=== PATIENT | female | born 1995 | race Caucasian/White ===

== ENCOUNTER 2016-10-19 11:51 | Emergency (ER) | payer SELFPAY ==
[2016-10-19 12:03] VITALS: PULSE 74; RESP 20; O2SAT 100
[2016-10-19 12:28] LABS: HCG,QUALITATIVE URINE NEGATIVE (NEGATIVE)
[2016-10-19 12:34] LABS: SQUAMOUS EPITHIAL 6 /hpf (0-5); URINE BILIRUBIN NEGATIVE (NEGATIVE); URINE BLOOD NEGATIVE (NEGATIVE); URINE CLARITY Clear (Clear); URINE COLOR Yellow (YELLOW); URINE GLUCOSE (UA) NORMAL (Normal); URINE NITRATE NEGATIVE (NEGATIVE); URINE PROTEIN NEGATIVE (NEGATIVE); URINE UROBILINOGEN NORMAL mg/dL (0.2-1.0)
[2016-10-19 12:38] LABS: URINE LEUKOCYTE ESTERASE 1+ Leu/uL (Negative)
[2016-10-19] MEDS ORDERED: cefTRIAXone (Rocephin) 250 mg Inj IM STA (13:26)
--- NOTE | 2016-10-19 13:38 | C.PDOC ---
History Of Present Illness Patient is a 21 y/o female that presents to the ED for evaluation of vaginal burning and itching associated with yellow vaginal discharge for the last 4 days. Otherwise, denies any abdominal pain, nausea, vomiting, back pain, hematuria, urinary frequency, fever, chills, or any other associated symptoms at this time. Time Seen by Provider: 10/19/16 12:47 Chief Complaint (Nursing): Female Genitourinary History Per: Patient History/Exam Limitations: no limitations Onset/Duration Of Symptoms: Days (4) Current Symptoms Are (Timing): Still Present Severity: None Pain Scale Rating Of: 0 Quality Of Discomfort: Burning Associated Symptoms: denies: Fever, Chills, Nausea, Vomiting, Diarrhea, Loss Of Appetite, Back Pain, Chest Pain, Constipation, Urinary Symptoms Alleviating Factors: None Recent travel outside of the [place]: No Additional History Per: Patient Abnormal Vaginal Bleeding: No Past Medical History Reviewed: Historical Data, Nursing Documentation, Vital Signs Vital Signs: Last Vital Signs Temp 97.9 F 10/19/16 13:57 Pulse 74 10/19/16 13:57 Resp 20 10/19/16 13:57 BP 106/68 10/19/16 13:57 Pulse Ox 100 10/19/16 14:28 Family History: States: Unknown Family Hx - Social History Hx Tobacco Use: No Hx Alcohol Use: No Hx Substance Use: No - Immunization History Hx Tetanus Toxoid Vaccination: No Hx Influenza Vaccination: No Hx Pneumococcal Vaccination: No Review Of Systems Except As Marked, All Systems Reviewed And Found Negative. Constitutional: Negative for: Fever, Chills Gastrointestinal: Negative for: Nausea, Vomiting, Abdominal Pain Genitourinary: Positive for: Vaginal Discharge (yellow), Other (vaginal itching and burning sensation). Negative for: Frequency, Incontinence, Hematuria, Vaginal Bleeding, Pelvic Pain, Rash Musculoskeletal: Negative for: Back Pain Physical Exam - Physical Exam Appears: Non-toxic, No Acute Distress Skin: Normal Color, Warm, Dry Head: Atraumatic, Normacephalic Neck: Normal ROM, Supple Chest: Symmetrical Cardiovascular: Rhythm Regular Gastrointestinal/Abdominal: Normal Exam, Soft, No Tenderness, No Guarding, No Rebound Pelvic: Normal External Exam, Normal Speculum Exam, No Vaginal Bleeding, Vaginal Discharge (yellow), No Cervical Motion Tenderness, No Adnexal Tenderness Neurological/Psych: Oriented x3, Normal Speech, Normal Cognition ED Course And Treatment O2 Sat by Pulse Oximetry: 100 (on RA) Pulse Ox Interpretation: Normal Progress Note: Urinalysis, and chlamydia/GC test ordered and reviewed. Patient was given Rocephin, and Azithromycin in the ER. Patient is being discharged home with prescription of Flagyl, and is instructed to follow up with PMD in 1- 2 days. Disposition - Disposition Referrals: [facility] at [facility] [Outside] Disposition: HOME/ ROUTINE Disposition Time: 13:37 Condition: STABLE Additional Instructions: Follow up with PMD/clinic within 1-2 days. Return to Ed if feel worse. 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 - Scribe Statement The provider has reviewed the documentation as recorded by the Scribe Shira Savage All medical record entries made by the Scribe were at my direction and personally dictated by me. I have reviewed the chart and agree that the record accurately reflects my personal performance of the history, physical exam, medical decision making, and the department course for this patient. I have also personally directed, reviewed, and agree with the discharge instructions and disposition.
[2016-10-19 13:58] VITALS: BP 106/68; TEMP 97.9
== END 2016-10-19 13:59 | disposition home or self-care (01) ==
LOC: C.ER 11:51
DX: N76.0 Acute vaginitis (principal)
CPT/HCPCS: 81001; 84703; 87491; 87591; 96372; 99284; J0696

== ENCOUNTER 2017-02-04 12:14 | Emergency (ER) | payer OTHER ==
[2017-02-04 12:15] VITALS: BMI 20.8
[2017-02-04 12:37] VITALS: RESP 18; O2SAT 99
[2017-02-04 13:20] LABS: RBC URINE < 1 /hpf (0-3); URINE BILIRUBIN NEGATIVE (NEGATIVE); URINE BLOOD NEGATIVE (NEGATIVE); URINE COLOR Yellow (YELLOW); URINE GLUCOSE (UA) NORMAL (Normal); URINE KETONE NEGATIVE (NEGATIVE); URINE LEUKOCYTE ESTERASE NEG Leu/uL (Negative); URINE PROTEIN NEGATIVE (NEGATIVE); URINE UROBILINOGEN NORMAL mg/dL (0.2-1.0); WBC URINE 1 /hpf (0-5)
--- NOTE | 2017-02-04 14:02 | C.PDOC ---
History Of Present Illness 21 year old female presents to the ED for evaluation of foul-smelling, green vaginal discharge which began 2 days ago. Patient denies fever, chills, abdominal pain, back pain, and dysuria. Time Seen by Provider: 02/04/17 12:32 Chief Complaint (Nursing): Female Genitourinary History Per: Patient History/Exam Limitations: no limitations Onset/Duration Of Symptoms: Days (2) Current Symptoms Are (Timing): Still Present Quality Of Discomfort: denies: "Pain" Associated Symptoms: denies: Fever, Chills, Back Pain, Urinary Symptoms Additional History Per: Patient Abnormal Vaginal Bleeding: No Past Medical History Reviewed: Historical Data, Nursing Documentation, Vital Signs Vital Signs: Last Vital Signs Temp 98.0 F 02/04/17 14:07 Pulse 77 02/04/17 14:07 Resp 18 02/04/17 14:07 BP 100/62 02/04/17 14:07 Pulse Ox 99 02/04/17 14:35 - Medical History PMH: No Chronic Diseases Surgical History: No Surg Hx Family History: States: Unknown Family Hx - Social History Hx Tobacco Use: No Hx Alcohol Use: No Hx Substance Use: No - Immunization History Hx Tetanus Toxoid Vaccination: No Hx Influenza Vaccination: No Hx Pneumococcal Vaccination: No Review Of Systems Constitutional: Negative for: Fever, Chills Gastrointestinal: Negative for: Abdominal Pain Genitourinary: Positive for: Vaginal Discharge (green, with foul odor ) Physical Exam - Physical Exam Appears: Non-toxic, No Acute Distress Skin: Normal Color, Warm, Dry Head: Atraumatic, Normacephalic Eye(s): bilateral: Normal Inspection Oral Mucosa: Moist Neck: Supple Chest: Symmetrical, No Deformity, No Tenderness Cardiovascular: Rhythm Regular, No Murmur Respiratory: Normal Breath Sounds, No Rales, No Rhonchi, No Wheezing Gastrointestinal/Abdominal: Soft, No Tenderness, No Guarding, No Rebound Pelvic: Vaginal Discharge (scant, no discharge associated with foul odor ), No Cervical Motion Tenderness, No Adnexal Tenderness, Other (Commercial Marketing Specialist: Lori Stuart RN ) Extremity: Normal ROM, Capillary Refill (less than 2 seconds) Neurological/Psych: Oriented x3, Normal Speech, Normal Cognition Gait: Steady ED Course And Treatment O2 Sat by Pulse Oximetry: 99 (on RA) Pulse Ox Interpretation: Normal Medical Decision Making Medical Decision Making: Progress: UA ordered and reviewed. Disposition - Disposition Referrals: Denise Kohler MD [Staff Provider] - Disposition: HOME/ ROUTINE Disposition Time: 14:00 Condition: GOOD Additional Instructions: Follow up with the medical doctor within 1-2 days. Return if worsened. Prescriptions: Fluconazole [Diflucan] 150 mg PO ONCE #2 tab Metronidazole [Metrogel] 60 gm TP DAILY #2 gel..gram. 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 - Scribe Statement The provider has reviewed the documentation as recorded by the Scribe (Sharon Savage) All medical record entries made by the Scribe were at my direction and personally dictated by me. I have reviewed the chart and agree that the record accurately reflects my personal performance of the history, physical exam, medical decision making, and the department course for this patient. I have also personally directed, reviewed, and agree with the discharge instructions and disposition.
[2017-02-04 14:08] VITALS: BP 100/62; PULSE 77; TEMP 98
== END 2017-02-04 14:08 | disposition home or self-care (01) ==
LOC: C.ER 12:14
DX: N76.0 Acute vaginitis (principal)

== ENCOUNTER 2017-06-13 17:33 | Emergency (ER) | payer OTHER ==
[2017-06-13 17:33] VITALS: BMI 20.8
[2017-06-13 18:36] VITALS: BP 133/70; PULSE 69; RESP 16; TEMP 98.2; O2SAT 99
[2017-06-13 19:29] LABS: HCG,QUALITATIVE URINE NEGATIVE (NEGATIVE)
[2017-06-13 19:30] LABS: SQUAMOUS EPITHIAL < 1 /hpf (0-5); URINE AMORPHOUS SEDIMENT RARE /ul (<OCC); URINE BACTERIA RARE (<OCC); URINE BILIRUBIN NEGATIVE (NEGATIVE); URINE BLOOD NEGATIVE (NEGATIVE); URINE CLARITY Clear (Clear); URINE COLOR Straw (YELLOW); URINE GLUCOSE (UA) NORMAL (Normal); URINE LEUKOCYTE ESTERASE NEG Leu/uL (Negative); URINE NITRATE NEGATIVE (NEGATIVE); URINE PROTEIN NEGATIVE (NEGATIVE); URINE UROBILINOGEN NORMAL mg/dL (0.2-1.0)
--- NOTE | 2017-06-13 19:44 | C.PDOC ---
History Of Present Illness 22 y/o female presents to the ER complaining of vaginal irritation and itchiness with a rash which gradually developed over the past 2 days. Patient states that she has thick white vaginal discharge. Patient denies fever, chills , abdominal pain, nausea, vomiting, and diarrhea. Patient denies using abx and having sexual contact. Time Seen by Provider: 06/13/17 19:11 Chief Complaint (Nursing): Female Genitourinary History Per: Patient History/Exam Limitations: no limitations Onset/Duration Of Symptoms: Days Current Symptoms Are (Timing): Still Present Severity: Moderate Past Medical History Reviewed: Historical Data, Nursing Documentation, Vital Signs Vital Signs: Last Vital Signs Temp 98.2 F 06/13/17 18:34 Pulse 69 06/13/17 18:34 Resp 16 06/13/17 18:34 BP 133/70 06/13/17 18:34 Pulse Ox 99 06/13/17 19:56 - Medical History PMH: No Chronic Diseases Surgical History: No Surg Hx Family History: States: No Known Family Hx - Social History Hx Tobacco Use: No Hx Alcohol Use: No Hx Substance Use: No - Immunization History Hx Tetanus Toxoid Vaccination: No Hx Influenza Vaccination: No Hx Pneumococcal Vaccination: No Review Of Systems Except As Marked, All Systems Reviewed And Found Negative. Constitutional: Negative for: Fever, Chills Gastrointestinal: Negative for: Nausea, Vomiting, Abdominal Pain, Diarrhea Genitourinary: Positive for: Vaginal Discharge, Rash, Other (vaginal itchiness) Physical Exam - Physical Exam Appears: Well, Non-toxic, No Acute Distress Skin: Normal Color, Warm, No Rash Head: Normacephalic Eye(s): bilateral: PERRL Nose: No Flaring Oral Mucosa: Moist, No Drooling Throat: No Erythema Neck: Trachea Midline, Supple Gastrointestinal/Abdominal: Soft, No Tenderness, No Distention, No Guarding, No Rebound Back: No CVA Tenderness Pelvic: Vaginal Discharge (scant, white, thick discharge), No Cervical Motion Tenderness, Other (mild vaginal erythema) Extremity: Normal ROM Neurological/Psych: Oriented x3, Normal Speech ED Course And Treatment O2 Sat by Pulse Oximetry: 99 (RA) Pulse Ox Interpretation: Normal Progress Note: On re-eval, pt is fabeirle, hemodynamicaly stable. Non-toxic. Tolerate Po well in ED. ENT: No acute findings. Abd: benign. : exam c/w candidal vulvovaginitis. BAck: (-) CVA tenderness. UA results review- normal. Pt advised on course of ds. ref. to f/u with [facility] In 2-3 days for re-eavl. Return to ED if any worsening or new changes. Disposition Counseled Patient/Family Regarding: Studies Performed, Diagnosis, Need For Followup, Rx Given - Disposition Referrals: Vania Savage MD [Staff Provider] - Disposition: HOME/ ROUTINE Disposition Time: 19:41 Condition: STABLE Additional Instructions: Take medication as prescribed Follow up with [facility] in 2-3 days for re-evaluation. Return to ED if any worsening or new changes. 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 - Scribe Statement The provider has reviewed the documentation as recorded by the Kannanibe Prince Galvan Provider Attestation All medical record entries made by the Kannanibe were at my direction and personally dictated by me. I have reviewed the chart and agree that the record accurately reflects my personal performance of the history, physical exam, medical decision making, and the department course for this patient. I have also personally directed, reviewed, and agree with the discharge instructions and disposition.
== END 2017-06-13 19:55 | disposition home or self-care (01) ==
LOC: C.ER 17:33
DX: B37.3 Candidiasis of vulva and vagina (principal)

== ENCOUNTER 2018-02-16 22:07 | Emergency (ER) | payer SELFPAY ==
[2018-02-16 22:07] VITALS: BMI 20.8
[2018-02-16] MEDS ORDERED: Sodium Chloride 0.9% 1,000 ML IV ONE ×2 (22:34→23:27)
[2018-02-16 22:36] LABS: HCG,QUALITATIVE URINE NEGATIVE (NEGATIVE)
--- NOTE | 2018-02-16 22:37 | C.PDOC ---
History Of Present Illness 22 year old female presents to the ED c/o nausea, abdominal cramping, diarrhea, and suprapubic discomfort since yesterday. Patient also states having intermittent headache and body aches for the past 3 days. Patient reports she ate steak prior to symptoms starting. Patient denies cough, runny nose, sore throat, CP, SOB, rash,dysuria, hematuria, recent travel, sick contacts. Time Seen by Provider: 02/16/18 22:27 Chief Complaint (Nursing): Abdominal Pain History Per: Patient History/Exam Limitations: no limitations Onset/Duration Of Symptoms: Days Current Symptoms Are (Timing): Still Present Location Of Pain/Discomfort: Suprapubic Radiation Of Pain To:: None Quality Of Discomfort: Cramping Associated Symptoms: Nausea, Diarrhea. denies: Vomiting, Urinary Symptoms Alleviating Factors: None Recent travel outside of the [place]: No Additional History Per: Patient Abnormal Vaginal Bleeding: No Past Medical History Reviewed: Historical Data, Nursing Documentation, Vital Signs Vital Signs: Last Vital Signs Temp 101.0 F H 02/16/18 22:22 Pulse 119 H 02/16/18 22:22 Resp 20 02/16/18 22:22 BP 121/81 02/16/18 22:22 Pulse Ox 98 02/16/18 22:22 - Medical History PMH: No Chronic Diseases Surgical History: No Surg Hx Family History: States: Unknown Family Hx - Social History Hx Tobacco Use: No Hx Alcohol Use: Yes Hx Substance Use: No - Immunization History Hx Tetanus Toxoid Vaccination: Yes Hx Influenza Vaccination: Yes Hx Pneumococcal Vaccination: No Review Of Systems Constitutional: Positive for: Malaise. Negative for: Fever, Chills ENT: Negative for: Nose Discharge, Nose Congestion, Throat Pain Cardiovascular: Negative for: Chest Pain Respiratory: Negative for: Cough, Shortness of Breath Gastrointestinal: Positive for: Nausea, Abdominal Pain, Diarrhea. Negative for: Vomiting Genitourinary: Negative for: Dysuria, Hematuria, Vaginal Discharge, Vaginal Bleeding Skin: Negative for: Rash Neurological: Positive for: Headache Physical Exam - Physical Exam Appears: Non-toxic, No Acute Distress, Other (shivering, warm to touch) Skin: Normal Color, Warm, Dry Head: Atraumatic, Normacephalic Eye(s): bilateral: Normal Inspection Oral Mucosa: Moist Neck: Normal ROM, Supple Chest: Symmetrical Cardiovascular: Rhythm Regular (tachycardic) Respiratory: Normal Breath Sounds, No Rales, No Rhonchi, No Wheezing Gastrointestinal/Abdominal: Soft, Tenderness (mild suprapubic), No Guarding, No Rebound, Other (Negative McBurney's ) Back: No CVA Tenderness Extremity: Normal ROM, No Tenderness, No Swelling Neurological/Psych: Oriented x3, Normal Speech, Normal Cognition Gait: Steady ED Course And Treatment - Laboratory Results Result Diagrams: 02/17/18 00:12 02/16/18 22:43 O2 Sat by Pulse Oximetry: 98 (ON RA) Pulse Ox Interpretation: Normal Progress Note: Plan: - Labs. - IV fluids. - Toradol 30 mg IVP. - Urine culture. - Influenza A B. - UA Disposition Counseled Patient/Family Regarding: Studies Performed, Diagnosis, Need For Followup, Rx Given - Disposition Referrals: [facility] at [facility] [Outside] Disposition: HOME/ ROUTINE Disposition Time: 01:00 Condition: STABLE Additional Instructions: FOLLOW UP WITH YOUR DOCTOR/CLINIC IN 1-2 DAYS DRINK PLENTY OF CLEAR FLUIDS USE MEDICATIONS NEEDED RETURN TO EMERGENCY ROOM IF YOUR SYMPTOMS BECOME WORSE SEGUIR CON NAVA MDICO / CLNICA EN 1-2 FLOWERS BEBER MUCHOS FLUIDOS RAMBO UTILICE MEDICAMENTOS FIDENCIO SE NECESITE VUELVA A LA SHA DE EMERGENCIA SI JUANITO SNTOMAS ESTN PEOR Prescriptions: Dicyclomine [Bentyl] 20 mg PO Q6 PRN #12 tab PRN Reason: ABDOMINAL CRAMPING Ibuprofen [Motrin Tab] 600 mg PO Q6 PRN #30 tab PRN Reason: fever/pain Ondansetron [Zofran Odt] 4 mg PO Q8 PRN #10 odt PRN Reason: Nausea/Vomiting Instructions: Viral Gastroenteritis, Adult (DC) Forms: [employer] (Vietnamese) Print Language: ROMANIAN - Clinical Impression Clinical Impression: Nausea, Vomiting, Diarrhea, Fever - Scribe Statement The provider has reviewed the documentation as recorded by the Scribjillian Rodarte All medical record entries made by the Scribe were at my direction and personally dictated by me. I have reviewed the chart and agree that the record accurately reflects my personal performance of the history, physical exam, medical decision making, and the department course for this patient. I have also personally directed, reviewed, and agree with the discharge instructions and disposition.
[2018-02-16 22:41] LABS: SQUAMOUS EPITHIAL 1 /hpf (0-5); URINE BACTERIA RARE (<OCC); URINE BILIRUBIN NEGATIVE (NEGATIVE); URINE BLOOD 1+ (NEGATIVE); URINE CLARITY Clear (Clear); URINE COLOR Yellow (YELLOW); URINE GLUCOSE (UA) NORMAL (Normal); URINE LEUKOCYTE ESTERASE NEG Leu/uL (Negative); URINE PROTEIN 1+ mg/dL (NEGATIVE); URINE UROBILINOGEN NORMAL mg/dL (0.2-1.0)
[2018-02-16 22:46] LABS: BASO % 0.2 % (0.0-2.0); EOS # 0.1 K/uL (0.0-0.7); EOS % 1.2 % (0.0-4.0); HEMOGLOBIN 14.3 g/dL (11.0-16.0); LYMPH # 0.7 K/uL (1.0-4.3); LYMPH % 9.6 % (20.0-40.0); MEAN CORPUSCULAR HEMOGLOBIN 32.3 pg (27.0-31.0); MEAN CORPUSCULAR HGB CONC 35.1 g/dL (33.0-37.0); MEAN PLATELET VOLUME 7.8 fL (7.2-11.7); MONO # 0.5 K/uL (0.0-0.8); MONO % 6.2 % (0.0-10.0); NEUT # 6.5 K/uL (1.8-7.0); NEUT % 82.8 % (50.0-75.0); PLATELET COUNT 207 K/uL (130-400); RBC 4.42 Mil/uL (3.80-5.20); RED CELL DISTRIBUTION WIDTH 13.6 % (11.5-14.5); WHITE BLOOD COUNT 7.8 K/uL (4.8-10.8)
[2018-02-16] MEDS ORDERED: Sodium Chloride 0.9% 1,000 ML ONE ×2 (22:54→23:34)
[2018-02-16 22:59] LABS: ALB/GLOB RATIO 1.4 (1.0-2.1); ALBUMIN 4.6 g/dL (3.5-5.0); ALT/SGPT 45 U/L (9-52); AST/SGOT 57 U/L (14-36); BLOOD UREA NITROGEN 13 mg/dL (7-17); CALCIUM 9.1 mg/dl (8.6-10.4); GFR NON-AFRICAN AMERICAN > 60; LIPASE 109 U/L (23-300)
[2018-02-16 23:03] LABS: BANDS 9 % (0-2); EOSINOPHIL 1 % (0-4); LYMPHOCYTE 6 % (20-40); MONOCYTE 4 % (0-10); NEUTROPHIL 77 % (50-75); REACTIVE LYMPHOCYTES 3 % (0-0); TOTAL CELLS COUNTED 100
[2018-02-16 23:04] LABS: PLATELET ESTIMATE NORMAL (NORMAL)
[2018-02-17 00:31] VITALS: BP 96/48; PULSE 109; RESP 18; TEMP 100.2
[2018-02-17 00:35] LABS: BASO % 0.2 % (0.0-2.0); EOS # 0.1 K/uL (0.0-0.7); EOS % 1.6 % (0.0-4.0); HEMOGLOBIN 11.3 g/dL (11.0-16.0); LYMPH # 0.7 K/uL (1.0-4.3); LYMPH % 10.9 % (20.0-40.0); MEAN CELL VOLUME 92.1 fL (81.0-99.0); MEAN CORPUSCULAR HEMOGLOBIN 31.5 pg (27.0-31.0); MEAN CORPUSCULAR HGB CONC 34.2 g/dL (33.0-37.0); MEAN PLATELET VOLUME 8.2 fL (7.2-11.7); MONO # 0.5 K/uL (0.0-0.8); NEUT # 5.2 K/uL (1.8-7.0); NEUT % 80.3 % (50.0-75.0); RBC 3.59 Mil/uL (3.80-5.20); RED CELL DISTRIBUTION WIDTH 13.3 % (11.5-14.5); WHITE BLOOD COUNT 6.5 K/uL (4.8-10.8)
[2018-02-17 00:55] VITALS: O2SAT 98
== END 2018-02-17 01:05 | disposition home or self-care (01) ==
LOC: C.ER 22:07
DX: R11.2 Nausea with vomiting, unspecified (principal); R19.7 Diarrhea, unspecified; R50.9 Fever, unspecified
CPT/HCPCS: 36415; 80053; 81001; 83690; 84703; 85025; 87086; 87804; 96361; 96374; 99285; J1885; J7030